=== PATIENT | male | born 1955 | race Caucasian/White ===

== ENCOUNTER → 2021-11-21 | Outpatient (CLI) | payer MEDICARE, OTHER ==
[~2021-11-21] MED LIST: ADULT LOW DOSE81 MG PO; ERYTHROMYCIN OP1 GM EYERT; IBUPROFEN600 MG PO; NORVASC10 MG PO
== END ==
LOC: HEART 5 14:41
DX: I49.3 Ventricular premature depolarization (principal)

== ENCOUNTER → 2021-11-24 | Outpatient (CLI) | payer MEDICARE, OTHER | LOC: CT 08:09 | DX: R31.9 Hematuria, unspecified (principal) | CPT/HCPCS: 36415; 82565; 84520; Q9967 ==

== ENCOUNTER → 2022-04-10 | Outpatient (CLI) | payer MEDICARE, OTHER | LOC: KOH-I 04-02 11:15 | DX: R31.9 Hematuria, unspecified (principal); N26.1 Atrophy of kidney (terminal) | CPT/HCPCS: 76775 ==